=== PATIENT | male | born 1945 | race Caucasian/White ===

== ENCOUNTER 2020-02-29 15:10 | IRF | payer MEDICARE, OTHER, SELFPAY ==
--- NOTE | ~2020-02-29 | XR_ITS ---
XR foot LT min 3V 03/02/2020 13:31 INDICATION: Dorsal metatarsal pain PROCEDURE: 4 views left foot COMPARISON: No prior studies for comparison. FINDINGS: Fracture, dislocation or subluxation is not identified. There are arterial calcifications. Mild osteoarthritis of the first MTP joint. The soft tissues appear within normal limits. No foreign bodies are identified. IMPRESSION: 1: NO ACUTE BONE OR JOINT ABNORMALITY IDENTIFIED. Reviewed, dictated and finalized at location A.
--- NOTE | ~2020-02-29 | XR_ITS ---
XR lumbar spine 2-3V DATE: 03/03/2020 18:38 INDICATION: Low back pain. No injury. TECHNIQUE: AP, lateral, coned lateral lumbosacral views COMPARISON: 01/05/2011 MR lumbar spine FINDINGS: There is grade 1 anterolisthesis at L3-4 and L4-5. There is moderately severe degenerative disc disease at L3-4, L4-5 and to a greater extent L5-S1. Diffuse osteopenia. There is degenerative spurring of the lower thoracic spine. No fracture or bone destruction of the lumbar spine is evident. The lumbar pedicles are intact. The sacroiliac joints are intact. Distal abdominal aortic and bilateral iliac stent. IMPRESSION: Grade 1 anterolisthesis at L3-4 and L4-5 Moderately severe degenerative disc disease at L3-4, L4-5 and L5-S1 Osteopenia Abdominal aortic/biiliac endovascular stent Reviewed, dictated and finalized at location A.
--- NOTE | ~2020-02-29 | XR_ITS ---
XR cervical spine 4-5V 03/02/2020 13:31 Indication: Generalized neck pain Procedure: 4 views of the cervical spine Comparison: No prior studies for comparison. Findings: Straightening of cervical lordosis. There are prominent marginal osteophytes at all cervica l levels. There is moderate multilevel facet and uncinate hypertrophy. Lung apices are normal. Odonto id process within normal limits. No prevertebral soft tissue abnormality. No acute fracture or trauma tic malalignment. Impression: 1: Moderate-severe cervical spondylosis. Reviewed, dictated and finalized at location A. Impression: 1: Moderate-severe cervical spondylosis.
--- NOTE | 2020-02-29 15:42 | PC.NURSE ---
This patient, Baldomero Ascencio, was admitted to [facility] Room 225-01. Patient/family oriented to hospital policies and general routines including ID bracelet, bed and alarms, visiting hours, pain management, procedures, bathroom and other care routines, personal items, smoking policy, room service/diet, and visiting hours. Valuables list has been completed. Information on how to activate the Rapid Response Team has been discussed. Patient/Family are encouraged to report perceived risks to care and to ask questions if they do not understand what they are told or what they should do.
[2020-02-29 15:43] VITALS: BMI 32.0
[2020-02-29 15:44] VITALS: BP 149/68; PULSE 70; RESP 20; TEMP 37; O2SAT 97
[2020-02-29] MEDS: LIPASE/AMYLASE/PROTEASE 12,000 UNITS CAP 2 CAP PO (17:33)
[2020-02-29 20:14] VITALS: BP 148/78; PULSE 68; RESP 20; TEMP 36.9; O2SAT 100
[2020-02-29] MEDS: ATORVASTATIN 40 MG TABLET PO (20:32)
[2020-02-29] MEDS: carvediloL 12.5 MG TABLET PO (20:33)
[2020-02-29] MEDS: DOCUSATE SODIUM 100 MG CAPSULE PO (20:33)
[2020-02-29] MEDS: SENNOSIDES 8.6 MG TABLET PO (20:33)
[2020-03-01 05:18] VITALS: BP 137/62; PULSE 70; RESP 20; TEMP 36.4; O2SAT 97
[2020-03-01 05:23] LABS: Basophils Absolute Auto 0.1 K/mm3 (0.0-0.1); Eosinophils Absolute Auto 0.6 K/mm3 (0-0.3); Eosinophils Percent Auto 8.1 % (0-4.4); Hematocrit 40.3 % (42.0-52.0); Hemoglobin 13.1 g/dL (14.0-18.0); Immature Granulocyte Absolute 0.02 K/mm3 (0.00-0.031); Immature Granulocyte Percent A 0.3 % (0-0.5); Lymphocytes Absolute Auto 1.65 K/mm3 (0.9-3.2); Lymphocytes Percent Auto 23.1 % (18.3-44.2); Mean Corpuscular HGB Conc 32.5 g/dl (32-36); Mean Corpuscular Hemoglobin 26.9 pg (26-34); Mean Corpuscular Volume 82.8 fl (80-100); Mean Platelet Volume 10.1 fl (7.4-10.4); Monocytes Absolute Auto 0.8 K/mm3 (0.1-0.6); Monocytes Percent Auto 11.2 % (2.6-8.5); Neutrophils Percent Auto 56.3 % (45.5-73.1); Platelet Count Result 169 k/mm3 (150-375); Red Blood Count 4.87 M/mm3 (4.6-6.20); Red Cell Distribution Width 15.1 % (11.5-14.5); White Blood Count 7.1 K/mm3 (4.5-10.0)
[2020-03-01 05:32] LABS: Anion Gap 6 mmol/L (8-16); Blood Urea Nitrogen 17 mg/dL (9-20); Calcium 8.8 mg/dL (8.4-10.2); Carbon Dioxide 24 mmol/L (22-30); Chloride 107 mmol/L (98-107); Cholesterol 118 mg/dL (0-200); Estimated CRCL calculation 52 ml/min; Estimated Glomerular Filt Rate 49; Glucose 100 mg/dL (75-110); HDL Direct 36 mg/dL; Potassium 3.9 mmol/L (3.4-5.0); Sodium 137 mmol/L (137-145); Triglycerides 77 mg/dL (<150)
[2020-03-01 05:42] LABS: LDL Cholesterol Direct 64 mg/dL
[2020-03-01 08:35] VITALS: PULSE 76
[2020-03-01] MEDS: CLOPIDOGREL BISULFATE 75 MG TABLET PO (08:35)
[2020-03-01] MEDS: PANTOPRAZOLE 40 MG TABLET PO (08:35)
[2020-03-01] MEDS: TAMSULOSIN HCL 0.4 MG CAPSULE PO (08:35)
[2020-03-01] MEDS: DOCUSATE SODIUM 100 MG CAPSULE PO ×2 (08:35→20:18)
[2020-03-01] MEDS: carvediloL 12.5 MG TABLET PO ×2 (08:35→20:18)
[2020-03-01] MEDS: DUTASTERIDE 0.5 MG CAPSULE PO (08:35)
[2020-03-01] MEDS: ASPIRIN 81 MG ENTERIC TABLET PO (08:35)
[2020-03-01] MEDS: LIPASE/AMYLASE/PROTEASE 12,000 UNITS CAP 2 CAP PO ×3 (08:35→17:13)
[2020-03-01] MEDS: ENOXAPARIN 40 MG/0.4 ML SYRINGE SUB-Q (08:36)
--- NOTE | 2020-03-01 10:54 | WPDREHABHP ---
H&P: HPI History of Present Illness Date/Time: 03/01/20 10:54 Chief complaint: CVA Narrative: Baldomero Ascencio is a 74 year old maleHISTORY OF PRESENT ILLNESS: The patient's primary rehab impairment category is Stroke [] The etiologic diagnosis is right temporal and occipital lobe infarcts [] I saw this patient [id number] on on March 01, 2020 at 10:15 a.m.[] The patient is a 74 years old right-handed male with a past medical history of recurrent strokes, chronic kidney disease stage 3, benign prostatic hypertrophy, obesity and chronic low back pain who presented to [facility] on February 24, 2020 with left arm weakness, dizziness, and left-sided weakness. The patient reports falling out of bed on the morning of presentation. He was transferred to [facility] the same day without notification to a hospitalist or nurse of ,the patient sat in the hallway for [id number] while his room was cleaned. CT scan of the head revealed a recent right temporal and right occipital lobe infarction with chronic appearing lacunar infarct in the left caudate and right cerebellum none. No acute hemorrhage was noted. Neurology was consulted and the patient was continued on aspirin and atorvastatin. EKG revealed a paced rhythm. Echo showed an ejection fraction of 30% with severe left ventricular systolic dysfunction, global hypokinesis, mild aortic stenosis, mild mitral wall regurgitation, mild aortic valve regurgitation, and mild to moderate tricuspid regurgitation. A CT of the lumbar spine was performed to evaluate chronic low back pain and showed multilevel degenerative disc disease. Physical examination continued to reveal left-sided weakness, decreased safety awareness, decreased gross motor control, and impaired balance. He passed the swallowing test and is on a regular consistency diet with thin liquids. Patient was discharged to rehab on Lovenox for DVT prophylaxis. The patient has not traveled outside the [place] or had contact with someone who is ill that his travels outside the [place] in the past 21 days. The patient has not traveled to an area of the [place] there is experiencing known transmission of the Coronavirus and has not had close personal contact with anyone that has. The patient does not have a fever. The patient is not experiencing lower respiratory illness symptoms. Therapy was initiated at the acute care facility and the patient transferred to us from [facility] on February 29, 2020 FALLS OR SURGERIES: The patient has had [no] major surgeries in the 100 days prior to admission. The patient had [no] falls in the past year. the patient has had no falls with injury in the past year . PAST MEDICAL HISTORY: recurrent strokes, chronic kidney disease stage 3, benign prostatic hypertrophy, obesity, and chronic low back pain PAST SURGICAL HISTORY: pacemaker and AAA repair SOCIAL HISTORY: former quit about 20 years ago. Occasional alcohol use. No drug abuse. The patient lives independently in a one-story home with 3 steps to enter. The patient was completely independent prior with no assistive device. Patient's son is able to stay with the patient at discharge from rehab if necessary FAMILY HISTORY: hypertension, coronary artery disease, and stroke PRIOR LEVEL OF FUNCTION: Eating was [INDEPENDENT] Oral Care was [INDEPENDENT] Toileting Hygiene was [INDEPENDENT] Shower/Bathing was [INDEPENDENT] Upper Body Dressing was [INDEPENDENT] Lower Body Dressing was [INDEPENDENT] Donning/[place] Footwear was [INDEPENDENT] Rolling Left and Right was [INDEPENDENT] Sit to Lying was [INDEPENDENT] Lying to Sitting was [INDEPENDENT] Sit to Stand was [INDEPENDENT] Bed to Chair Transfers was [INDEPENDENT] Toilet Transfers was [INDEPENDENT] Walking was [INDEPENDENT] [>500 feet] with [NO DEVICE] Wheelchair Mobility was [NOT APPLICABLE PRIOR TO ADMISSION] Stairs were [IN
[2020-03-01 14:00] VITALS: BP 122/53; PULSE 70; RESP 20; TEMP 36.2; O2SAT 100
--- NOTE | 2020-03-01 14:03 | PCSTNOTE ---
Bedside swallow evaluation This pt was seen for a bedside swallow evaluation (BSE). The pt is edentulous. Following a BSE at another facility, he was placed on a mechanical soft diet with thin liquids. The pt reports that he eats all foods except nuts due to his missing teeth. The pt was given thin and extremely thick liquid, puree, and solid food. All trials were within normal limits, and he exhibited no difficulty with solids despite his missing teeth. It is recommended for the pt to receive a regular, easy to chew diet (7) with thin liquid. Position during intake should be upright. The pt should eat independently. No skilled ST is warranted to address swallowing at this time.
[2020-03-01] MEDS: ATORVASTATIN 40 MG TABLET PO (20:18)
[2020-03-01] MEDS: SENNOSIDES 8.6 MG TABLET PO (20:19)
[2020-03-01 21:42] VITALS: BP 129/64; PULSE 77; RESP 20; TEMP 36.6; O2SAT 96
[2020-03-02 05:37] VITALS: BP 126/75; PULSE 70; RESP 18; TEMP 35.9; O2SAT 100
[2020-03-02] MEDS: DOCUSATE SODIUM 100 MG CAPSULE PO ×2 (08:57→20:17)
[2020-03-02] MEDS: ENOXAPARIN 40 MG/0.4 ML SYRINGE SUB-Q (08:57)
[2020-03-02] MEDS: LIPASE/AMYLASE/PROTEASE 12,000 UNITS CAP 2 CAP PO ×3 (08:57→17:38)
[2020-03-02] MEDS: CLOPIDOGREL BISULFATE 75 MG TABLET PO (08:57)
[2020-03-02] MEDS: DUTASTERIDE 0.5 MG CAPSULE PO (08:57)
[2020-03-02] MEDS: ASPIRIN 81 MG ENTERIC TABLET PO (08:57)
[2020-03-02 08:58] VITALS: PULSE 70
[2020-03-02] MEDS: carvediloL 12.5 MG TABLET PO ×2 (08:58→20:17)
[2020-03-02] MEDS: PANTOPRAZOLE 40 MG TABLET PO (08:58)
[2020-03-02] MEDS: TAMSULOSIN HCL 0.4 MG CAPSULE PO (08:58)
--- NOTE | 2020-03-02 12:50 | WPDNEURORHBP ---
Subjective Date/time seen: 03/02/20 12:50 74 years old right-handed male admitted to the hospital on the rehab floor was the right temporal and occipital lobe infarct in addition to the history of abdominal aortic repair for the aneurysm and a pacemaker, former smoker and drinker Review of Systems Review of Systems: All systems reviewed & are unremarkable except as noted in HPI and below Functional Status Ambulation Ability Ability to Ambulate 10 Feet: Standby Assistance Ability to Ambulate 50 Feet With 2 Turns: Standby Assistance Ability to Ambulate 150 Feet: Standby Assistance Ambulation Assistive Devices: Walker, Wheeled Transfers Ability Ability to Transfer In/Out of Chair: Standby Assistance Exam Narrative: Exam Narrative: examination reveals him to be awake alert cooperative ear nose throat examination normal with no cervical bruit thyromegaly or lymphadenopathy heart regular with no murmur lungs clear to auscultation abdomen is soft with normal bowel sounds his concern about the left foot would be x-rayed today because of the abrasions neurological examination reveals him to have left hemiparesis with hyperreflexia and upgoing plantar response mental status is normal with no evidence of anxiety hallucination or delusion or depression Objective Data Vital Signs Vital Signs: Vital Signs - 24 hr 03/01/20 14:00 03/01/20 21:42 03/02/20 05:37 Temperature 36.2 C L 36.6 C 35.9 C L Pulse Rate 70 77 70 Respiratory Rate 20 20 18 Blood Pressure 122/53 L 129/64 126/75 Pulse Oximetry 100 96 100 03/02/20 08:58 Temperature Pulse Rate 70 Respiratory Rate Blood Pressure Pulse Oximetry Intake/Output Intake/Output: Intake & Output 02/28/20 02/29/20 03/01/20 03/02/20 23:59 23:59 23:59 23:59 Intake Total 240 720 200 Balance 240 720 200 Meds/Results Medications: Active Medications Generic Name Dose Route Start Last Admin Trade Name Freq PRN Reason Stop Dose Admin Lipase/Protease/Amylase 2 cap 02/29/20 17:00 03/02/20 12:10 Afia Gamez 12,000 Units Capsule PO 2 cap TIDWM PRINCE Administration Aspirin 81 mg 03/01/20 09:00 03/02/20 08:57 Aspirin Ec PO 81 mg DAILY PRINCE Administration Atorvastatin Calcium 40 mg 02/29/20 21:00 03/01/20 20:18 Lipitor PO 40 mg HS PRINCE Administration Carvedilol 12.5 mg 02/29/20 21:00 03/02/20 08:58 Coreg PO 12.5 mg Q12HR PRINCE Administration Clopidogrel Bisulfate 75 mg 03/01/20 09:00 03/02/20 08:57 Plavix PO 75 mg DAILY PRINCE Administration Docusate Sodium 100 mg 02/29/20 21:00 03/02/20 08:57 Colace Capsule PO 100 mg Q12HR PRINCE Administration Dutasteride 0.5 mg 03/01/20 09:00 03/02/20 08:57 Avodart PO 0.5 mg DAILY PRINCE Administration Enoxaparin Sodium 40 mg 03/01/20 09:00 03/02/20 08:57 Lovenox SUB-Q 40 mg DAILY PRINCE Administration Oxycodone HCl 5 mg 02/29/20 18:49 03/02/20 09:02 Roxicodone Ir Tablet PO 5 mg Q4-6H PRN Administration Pain Rated 6 or Greater Pantoprazole Sodium 40 mg 03/01/20 09:00 03/02/20 08:58 Protonix PO 03/31/20 09:01 40 mg DAILY PRINCE Administration Senna 8.6 mg 02/29/20 21:00 03/01/20 20:19 Senokot Tablet PO 8.6 mg HS PRINCE Administration Tamsulosin HCl 0.4 mg 03/01/20 09:00 03/02/20 08:58 Flomax PO 0.4 mg DAILY PRINCE Administration Progress Note: A&P Assessment and Plan (1) Mild tricuspid valve regurgitation: Code(s): I07.1 - Rheumatic tricuspid insufficiency Status: Acute (2) Mild aortic valve regurgitation: Code(s): I35.1 - Nonrheumatic aortic (valve) insufficiency Status: Acute (3) Mitral valve regurgitation: Code(s): I34.0 - Nonrheumatic mitral (valve) insufficiency Status: Acute (4) Left ventricular dysfunction: Code(s): I51.9 - Heart disease, unspecified Status: Acute (5) Chronic low back pain: Code(s): M54.5 - Low back pain; G89.29 - Other chronic p
[2020-03-02 14:00] VITALS: BP 127/63; PULSE 70; RESP 20; TEMP 36.4; O2SAT 100
[2020-03-02 20:17] VITALS: PULSE 80
[2020-03-02] MEDS: ATORVASTATIN 40 MG TABLET PO (20:23)
[2020-03-02] MEDS: SENNOSIDES 8.6 MG TABLET PO (20:23)
[2020-03-02 22:00] VITALS: BP 148/74; PULSE 70; RESP 18; TEMP 36.8; O2SAT 99
[2020-03-03 06:00] VITALS: BP 130/56; PULSE 70; RESP 18; TEMP 36.5; O2SAT 100
[2020-03-03 08:36] VITALS: PULSE 70
[2020-03-03] MEDS: LIPASE/AMYLASE/PROTEASE 12,000 UNITS CAP 2 CAP PO ×3 (08:36→17:38)
[2020-03-03] MEDS: carvediloL 12.5 MG TABLET PO ×2 (08:36→20:34)
[2020-03-03] MEDS: ASPIRIN 81 MG ENTERIC TABLET PO (08:36)
[2020-03-03] MEDS: CLOPIDOGREL BISULFATE 75 MG TABLET PO (08:37)
[2020-03-03] MEDS: PANTOPRAZOLE 40 MG TABLET PO (08:37)
[2020-03-03] MEDS: DOCUSATE SODIUM 100 MG CAPSULE PO ×2 (08:37→20:38)
[2020-03-03] MEDS: ENOXAPARIN 40 MG/0.4 ML SYRINGE SUB-Q (08:37)
[2020-03-03] MEDS: DUTASTERIDE 0.5 MG CAPSULE PO (08:37)
[2020-03-03] MEDS: TAMSULOSIN HCL 0.4 MG CAPSULE PO (08:37)
--- NOTE | 2020-03-03 13:27 | RPD ---
INDIVIDUALIZED PLAN OF CARE FOR Baldomero Ascencio Brief Synthesis of Pre-Admission Screen, Post-Admission Evaluation and Therapy Evaluations: The patient presents to rehab with Right temporal and occipital lobe infarcts. Comorbidities include hypertension, chronic low back pain, benign prostatic hypertrophy with obstruction, dyslipidemia, chronic kidney disease, weakness, and vertigo. The patient?s needs will be best met in an intensive program vs. at a lower level of care. The patient requires physician services for neurology services, medical oversight, and coordination of care. Emotional needs will be monitored as depression is a common sequelae of stroke. The patient needs physician monitoring and treatment of anemia, perioperative blood loss, monitoring for adverse reactions to new medications, monitoring of infection, and pain control. The patient requires nursing services for frequent neuro checks, anticoagulation therapy,medication management and education, pressure relief and skin care management, monitoring of labs, bowel and bladder training, diabetes management and education, IV administration, and fall/safety precautions. Deficits include: ADLs, Balance, Endurance, Family Training/Education, Mobility, Pain Management, ROM, Safety, Strength, and Transfers. Metal Wire Coating Operator/Case Management for: Discharge Planning and Patient/Family Counseling Physical Therapy: 5 days per week for 90 minutes. Treatments may include: Therapeutic Exercise, Gait Training, Neuromuscular Re-education, Transfer Training, Community Reintegration, Bed Mobility, Patient/Family Education, Wheelchair Mobility Group Therapy/Concurrent Therapy Rationales: -Improve attention span during functional activities in a distracted environment. -Enhance problem solving and/or adequate judgment skills during functional activities in a distracted environment. -Promote increased safety awareness in a distracted environment to reduce fall risk with functional tasks, transfers, and ambulation to allow a more safe, self-sufficient return to the home environment. -Improve dynamic balance skills to promote safety and independence with functional activities in a distracted environment for maximum gain. Occupational Therapy: 5 days per week for 90 minutes. Treatments may include: Therapeutic Exercise, Therapeutic Activity, Cognitive Training, Self-Care Transfer Training, Community Reintegration, Home Management, Patient/Family Education, Wheelchair Mobility Training, Energy Conservation Training Group Therapy/Concurrent Therapy Rationales: -Allow therapist to observe and teach generalization and carry-over of skills learned in individual therapy. -Enhance problem solving and sequencing skills during therapeutic activities in a distracted environment. -Promote increased safety awareness in a realistic setting to reduce fall risk with functional tasks due to visual and verbal distractions. -Increase functional level with ADLs, ADL transfers and use of adaptive equipment through therapeutic activities with others while promoting safety to allow a more safe, self-sufficient return home. Speech Therapy: 5 days per week for 30 minutes. Treatments may include: Dysphasia Therapy, Speech/Language/Communication Therapy, Cognitive Training, Patient/Family Education Group Therapy/Concurrent Therapy - Rationale: -Allow therapist to observe and teach generalization and carry-over of skills learned in individual therapy. -Improve comprehension skills with complex or abstract ideas through discussion in a realistic setting. -Enhance problem solving skills with complex issues during activities in a distracted environment. -Promote increased memory skills and concentration in a distracted environment for a safe transition home. -Improve attention and focus with language/communication skills in a realistic and supportive therapeutic setting. -Allow for practice of expression of basic needs and ideas through functional a
[2020-03-03 14:00] VITALS: BP 126/58; PULSE 74; RESP 18; TEMP 36.2; O2SAT 98
[2020-03-03 14:12] VITALS: BMI 32.0
--- NOTE | 2020-03-03 14:30 | RPD ---
INDIVIDUALIZED PLAN OF CARE FOR Baldomero Ascencio Brief Synthesis of Pre-Admission Screen, Post-Admission Evaluation and Therapy Evaluations: The patient presents to rehab with Right temporal and occipital lobe infarcts. Comorbidities include hypertension, chronic low back pain, benign prostatic hypertrophy with obstruction, dyslipidemia, chronic kidney disease, weakness, and vertigo. The patient?s needs will be best met in an intensive program vs. at a lower level of care. The patient requires physician services for neurology services, medical oversight, and coordination of care. Emotional needs will be monitored as depression is a common sequelae of stroke. The patient needs physician monitoring and treatment of anemia, perioperative blood loss, monitoring for adverse reactions to new medications, monitoring of infection, pain control. The patient requires nursing services for frequent neuro checks, anticoagulation therapy, medication management and education, pressure relief and skin care management, monitoring of labs, bowel and bladder training, diabetes management and education, IV administration, and fall/safety precautions. Deficits include: ADLs, Balance, Endurance, Family Training/Education, Mobility, Pain Management, ROM, Safety, Strength, and Transfers. Accounting Auditor/Case Management for: Discharge Planning and Patient/Family Counseling Physical Therapy: 5 days per week for 75 minutes. Treatments may include: Therapeutic Exercise, Gait Training, Neuromuscular Re-education, Transfer Training, Community Reintegration, Bed Mobility, Patient/Family Education, Wheelchair Mobility Group Therapy/Concurrent Therapy Rationales: -Improve attention span during functional activities in a distracted environment. -Enhance problem solving and/or adequate judgment skills during functional activities in a distracted environment. -Promote increased safety awareness in a distracted environment to reduce fall risk with functional tasks, transfers, and ambulation to allow a more safe, self-sufficient return to the home environment. -Improve dynamic balance skills to promote safety and independence with functional activities in a distracted environment for maximum gain. Occupational Therapy: 5 days per week for 75 minutes. Treatments may include: Therapeutic Exercise, Therapeutic Activity, Cognitive Training, Self-Care Transfer Training, Community Reintegration, Home Management, Patient/Family Education, Wheelchair Mobility Training, Energy Conservation Training Group Therapy/Concurrent Therapy Rationales: -Allow therapist to observe and teach generalization and carry-over of skills learned in individual therapy. -Enhance problem solving and sequencing skills during therapeutic activities in a distracted environment. -Promote increased safety awareness in a realistic setting to reduce fall risk with functional tasks due to visual and verbal distractions. -Increase functional level with ADLs, ADL transfers and use of adaptive equipment through therapeutic activities with others while promoting safety to allow a more safe, self-sufficient return home. Speech Therapy: 5 days per week for 30 minutes. Treatments may include: Dysphasia Therapy, Speech/Language/Communication Therapy, Cognitive Training, Patient/Family Education Group Therapy/Concurrent Therapy - Rationale: -Allow therapist to observe and teach generalization and carry-over of skills learned in individual therapy. -Improve comprehension skills with complex or abstract ideas through discussion in a realistic setting. -Enhance problem solving skills with complex issues during activities in a distracted environment. -Promote increased memory skills and concentration in a distracted environment for a safe transition home. -Improve attention and focus with language/communication skills in a realistic and supportive therapeutic setting. -Allow for practice of expression of basic needs and ideas through functional acti
[2020-03-03] MEDS: ATORVASTATIN 40 MG TABLET PO (20:33)
[2020-03-03 20:34] VITALS: PULSE 74
[2020-03-03] MEDS: SENNOSIDES 8.6 MG TABLET PO (20:40)
[2020-03-03 22:00] VITALS: BP 138/62; PULSE 76; RESP 18; TEMP 36.3; O2SAT 98
[2020-03-04 06:00] VITALS: BP 135/67; PULSE 70; RESP 20; TEMP 36.6; O2SAT 100
[2020-03-04 08:30] VITALS: PULSE 64
[2020-03-04] MEDS: carvediloL 12.5 MG TABLET PO ×2 (08:30→20:28)
[2020-03-04] MEDS: ASPIRIN 81 MG ENTERIC TABLET PO (08:30)
[2020-03-04] MEDS: CLOPIDOGREL BISULFATE 75 MG TABLET PO (08:30)
[2020-03-04] MEDS: TAMSULOSIN HCL 0.4 MG CAPSULE PO (08:32)
[2020-03-04] MEDS: PANTOPRAZOLE 40 MG TABLET PO (08:32)
[2020-03-04] MEDS: DUTASTERIDE 0.5 MG CAPSULE PO (08:32)
[2020-03-04] MEDS: ENOXAPARIN 40 MG/0.4 ML SYRINGE SUB-Q (08:32)
[2020-03-04] MEDS: DOCUSATE SODIUM 100 MG CAPSULE PO ×2 (08:38→20:28)
[2020-03-04 14:00] VITALS: BP 107/63; PULSE 76; RESP 20; TEMP 36.6; O2SAT 98
--- NOTE | 2020-03-04 14:42 | WPDNEURORHBP ---
Subjective Date/time seen: 03/04/20 14:43 Interval history: this 74-year-old gentleman is here after having had right temporal and occipital lobe infarcts with significant visual field defect receiving PT OT gait training is able to walk 300 feet and we will discontinue the Lovenox his visual field defect is the most bothersome thing in the things complaining of constipation and would give him milk of magnesia The patient is doing fairly well and denies any headache nausea vomiting chest pain shortness of breath fever chills sore throat Review of Systems Review of Systems: All systems reviewed & are unremarkable except as noted in HPI and below Functional Status Ambulation Ability Ability to Ambulate 10 Feet: Standby Assistance Ability to Ambulate 50 Feet With 2 Turns: Standby Assistance Ability to Ambulate 150 Feet: Contact Guard Ambulation Assistive Devices: Walker, Wheeled Transfers Ability Ability to Transfer In/Out of Chair: Standby Assistance Exam Const: General: comfortable and no acute distress HENMT: General nose exam: Normal nares present Mouth: Yes moist mucous membranes Eyes: General: appearance normal, both eyes and all related structures Other: significant left-sided visual field defect hampering the activities of daily Neck: Neck: supple and no JVD Resp: Effort & Inspection: normal respiratory effort Auscultation: clear to auscultation bilaterally Cardio: Rate: regular rate Rhythm: regular rhythm GI: GI Palp: Yes Soft to palpation Auscultation: normal bowel sounds Skin: General skin exam: normal color and no rashes or lesions noted Neuro: Other: patient is awake and alert will oriented needing assistance all the activities of daily living at this time however made excellent progress visual field defect is the most important defect hampering his activities Extrem: General: normal to inspection Psych: Mental Status: mental status grossly normal Objective Data Vital Signs Vital Signs: Vital Signs - 24 hr 03/03/20 20:34 03/03/20 22:00 03/04/20 06:00 Temperature 36.3 C L 36.6 C Pulse Rate 74 76 70 Respiratory Rate 18 20 Blood Pressure 138/62 135/67 Pulse Oximetry 98 100 03/04/20 08:30 Temperature Pulse Rate 64 Respiratory Rate Blood Pressure Pulse Oximetry Intake/Output Intake/Output: Intake & Output 03/01/20 03/02/20 03/03/20 03/04/20 23:59 23:59 23:59 23:59 Intake Total 720 640 720 Balance 720 640 720 Meds/Results Medications: Active Medications Generic Name Dose Route Start Last Admin Trade Name Freq PRN Reason Stop Dose Admin Lipase/Protease/Amylase 2 cap 02/29/20 17:00 03/04/20 12:44 Afia Gamez 12,000 Units Capsule PO Not Given TIDWM PRINCE Aspirin 81 mg 03/01/20 09:00 03/04/20 08:30 Aspirin Ec PO 81 mg DAILY PRINCE Administration Atorvastatin Calcium 40 mg 02/29/20 21:00 03/03/20 20:33 Lipitor PO 40 mg HS PRINCE Administration Carvedilol 12.5 mg 02/29/20 21:00 03/04/20 08:30 Coreg PO 12.5 mg Q12HR PRINCE Administration Clopidogrel Bisulfate 75 mg 03/01/20 09:00 03/04/20 08:30 Plavix PO 75 mg DAILY PRINCE Administration Docusate Sodium 100 mg 02/29/20 21:00 03/04/20 08:38 Colace Capsule PO 100 mg Q12HR PRINCE Administration Dutasteride 0.5 mg 03/01/20 09:00 03/04/20 08:32 Avodart PO 0.5 mg DAILY [facility] Administration Magnesium Hydroxide 30 ml 03/04/20 13:00 Milk Of Magnesia PO QAM PRN Constipation Oxycodone HCl 5 mg 02/29/20 18:49 03/04/20 13:38 Roxicodone Ir Tablet PO 5 mg Q4-6H PRN Administration Pain Rated 6 or Greater Pantoprazole Sodium 40 mg 03/01/20 09:00 03/04/20 08:32 Protonix PO 03/31/20 09:01 40 mg DAILY PRINCE Administration Senna 8.6 mg 02/29/20 21:00 03/03/20 20:40 Senokot Tablet PO 8.6 mg HS PRINCE Administration Tamsulosin HCl 0.4 mg 03/01/20 09:00 03/04/20 08:32 Flomax PO 0.4 mg DAILY PRINCE Administration
[2020-03-04] MEDS: LIPASE/AMYLASE/PROTEASE 12,000 UNITS CAP 2 CAP PO (16:28)
[2020-03-04 20:28] VITALS: PULSE 76
[2020-03-04] MEDS: ATORVASTATIN 40 MG TABLET PO (20:28)
[2020-03-04] MEDS: SENNOSIDES 8.6 MG TABLET PO (20:28)
[2020-03-04] MEDS: MAGNESIUM HYDROXIDE SUSP 30 ML UDC PO (20:34)
[2020-03-04 22:00] VITALS: BP 144/75; PULSE 64; RESP 20; TEMP 36.8; O2SAT 100
[2020-03-05 06:00] VITALS: BP 157/67; PULSE 71; RESP 20; TEMP 36.8; O2SAT 99
[2020-03-05 09:08] VITALS: PULSE 88
[2020-03-05] MEDS: LIPASE/AMYLASE/PROTEASE 12,000 UNITS CAP 2 CAP PO ×3 (09:08→17:39)
[2020-03-05] MEDS: ASPIRIN 81 MG ENTERIC TABLET PO (09:08)
[2020-03-05] MEDS: carvediloL 12.5 MG TABLET PO ×2 (09:08→20:40)
[2020-03-05] MEDS: PANTOPRAZOLE 40 MG TABLET PO (09:09)
[2020-03-05] MEDS: TAMSULOSIN HCL 0.4 MG CAPSULE PO (09:09)
[2020-03-05] MEDS: CLOPIDOGREL BISULFATE 75 MG TABLET PO (09:09)
[2020-03-05] MEDS: DUTASTERIDE 0.5 MG CAPSULE PO (09:09)
[2020-03-05] MEDS: DOCUSATE SODIUM 100 MG CAPSULE PO ×2 (09:17→20:40)
[2020-03-05 14:00] VITALS: BP 118/58; PULSE 69; RESP 20; TEMP 36.7; O2SAT 96
--- NOTE | 2020-03-05 15:06 | WPDNEURORHBP ---
Subjective Date/time seen: 03/05/20 15:06 Interval history: this 74-year-old gentleman is here after having had the right temporoparietal stroke with visual field defect from which she is improving overall he denies any headache nausea vomiting chest pain shortness of breath fever chills sore throat Review of Systems Review of Systems: All systems reviewed & are unremarkable except as noted in HPI and below Functional Status Ambulation Ability Ability to Ambulate 10 Feet: Standby Assistance Ability to Ambulate 50 Feet With 2 Turns: Standby Assistance Ability to Ambulate 150 Feet: Standby Assistance Ambulation Assistive Devices: Walker, Wheeled Transfers Ability Ability to Transfer In/Out of Chair: Standby Assistance Exam Const: General: comfortable and no acute distress HENMT: General nose exam: Normal nares present Mouth: Yes moist mucous membranes Eyes: General: appearance normal, both eyes and all related structures Neck: Neck: supple and no JVD Resp: Effort & Inspection: normal respiratory effort Auscultation: clear to auscultation bilaterally Cardio: Rate: regular rate Rhythm: regular rhythm GI: GI Palp: Yes Soft to palpation Auscultation: normal bowel sounds Skin: General skin exam: normal color and no rashes or lesions noted Neuro: Other: patient is awake and alert well oriented with left-sided visual field defect and discoordination and that is the main issue he is doing well otherwise and has excellent progress Extrem: General: normal to inspection Psych: Mental Status: mental status grossly normal Objective Data Vital Signs Vital Signs: Vital Signs - 24 hr 03/04/20 20:28 03/04/20 22:00 03/05/20 06:00 Temperature 36.8 C 36.8 C Pulse Rate 76 64 71 Respiratory Rate 20 20 Blood Pressure 144/75 H 157/67 H Pulse Oximetry 100 99 03/05/20 09:08 Temperature Pulse Rate 88 Respiratory Rate Blood Pressure Pulse Oximetry Intake/Output Intake/Output: Intake & Output 03/02/20 03/03/20 03/04/20 03/05/20 23:59 23:59 23:59 23:59 Intake Total 640 720 480 480 Balance 640 720 480 480 Meds/Results Medications: Active Medications Generic Name Dose Route Start Last Admin Trade Name Freq PRN Reason Stop Dose Admin Hydrocodone Bitart/Acetaminophen 1 tab 03/04/20 15:28 03/05/20 09:17 [place] 7.5-325 Mg PO 1 tab Q4-6H PRN Administration Pain Rated 7-10 Lipase/Protease/Amylase 2 cap 02/29/20 17:00 03/05/20 12:[address] 12,000 Units Capsule PO 2 cap TIDWM PRINCE Administration Aspirin 81 mg 03/01/20 09:00 03/05/20 09:08 Aspirin Ec PO 81 mg DAILY PRINCE Administration Atorvastatin Calcium 40 mg 02/29/20 21:00 03/04/20 20:28 Lipitor PO 40 mg HS PRINCE Administration Carvedilol 12.5 mg 02/29/20 21:00 03/05/20 09:08 Coreg PO 12.5 mg Q12HR PRINCE Administration Clopidogrel Bisulfate 75 mg 03/01/20 09:00 03/05/20 09:09 Plavix PO 75 mg DAILY PRINCE Administration Docusate Sodium 100 mg 02/29/20 21:00 03/05/20 09:17 Colace Capsule PO 100 mg Q12HR PRINCE Administration Dutasteride 0.5 mg 03/01/20 09:00 03/05/20 09:09 Avodart PO 0.5 mg DAILY PRINCE Administration Magnesium Hydroxide 30 ml 03/04/20 13:00 03/04/20 20:34 Milk Of Magnesia PO 30 ml QAM PRN Administration Constipation Pantoprazole Sodium 40 mg 03/01/20 09:00 03/05/20 09:09 Protonix PO 03/31/20 09:01 40 mg DAILY PRINCE Administration Senna 8.6 mg 02/29/20 21:00 03/04/20 20:28 Senokot Tablet PO 8.6 mg HS PRINCE Administration Tamsulosin HCl 0.4 mg 03/01/20 09:00 03/05/20 09:09 Flomax PO 0.4 mg DAILY PRINCE Administration Radiology Results: ITS Impressions Cervical Spine X-Ray 03/02/20 15:12 Impression: 1: Moderate-severe cervical spondylosis. Foot X-Ray 03/02/20 15:14 IMPRESSION: 1: NO ACUTE BONE OR JOINT ABNORMALITY IDENTIFIED. Lumbar Spine X-Ray 03/03/20 19:32 IMPRESSION: Nina
[2020-03-05] MEDS: ATORVASTATIN 40 MG TABLET PO (20:39)
[2020-03-05 20:40] VITALS: PULSE 69
[2020-03-05] MEDS: SENNOSIDES 8.6 MG TABLET PO (20:40)
[2020-03-05 22:00] VITALS: BP 140/77; PULSE 80; RESP 18; TEMP 36.8; O2SAT 98
[2020-03-06 06:00] VITALS: BP 114/64; PULSE 67; RESP 20; TEMP 36.2; O2SAT 91
[2020-03-06 08:40] VITALS: PULSE 67
[2020-03-06] MEDS: LIPASE/AMYLASE/PROTEASE 12,000 UNITS CAP 2 CAP PO ×3 (08:40→17:56)
[2020-03-06] MEDS: DUTASTERIDE 0.5 MG CAPSULE PO (08:40)
[2020-03-06] MEDS: PANTOPRAZOLE 40 MG TABLET PO (08:40)
[2020-03-06] MEDS: CLOPIDOGREL BISULFATE 75 MG TABLET PO (08:40)
[2020-03-06] MEDS: ASPIRIN 81 MG ENTERIC TABLET PO (08:40)
[2020-03-06] MEDS: carvediloL 12.5 MG TABLET PO ×2 (08:40→20:47)
[2020-03-06] MEDS: TAMSULOSIN HCL 0.4 MG CAPSULE PO (08:41)
[2020-03-06] MEDS: DOCUSATE SODIUM 100 MG CAPSULE PO ×2 (08:42→20:47)
[2020-03-06 14:00] VITALS: BP 142/68; PULSE 84; RESP 20; TEMP 36.5; O2SAT 99
[2020-03-06 20:06] VITALS: BP 133/62; PULSE 70; RESP 18; TEMP 36.8; O2SAT 100
[2020-03-06] MEDS: ATORVASTATIN 40 MG TABLET PO (20:47)
[2020-03-06] MEDS: SENNOSIDES 8.6 MG TABLET PO (20:47)
[2020-03-07 05:07] VITALS: BP 114/70; PULSE 75; RESP 18; TEMP 36.4; O2SAT 96
[2020-03-07 10:07] VITALS: PULSE 75
[2020-03-07] MEDS: carvediloL 12.5 MG TABLET PO ×2 (10:07→20:27)
[2020-03-07] MEDS: LIPASE/AMYLASE/PROTEASE 12,000 UNITS CAP 2 CAP PO ×3 (10:07→18:11)
[2020-03-07] MEDS: ASPIRIN 81 MG ENTERIC TABLET PO (10:07)
[2020-03-07] MEDS: TAMSULOSIN HCL 0.4 MG CAPSULE PO (10:08)
[2020-03-07] MEDS: DUTASTERIDE 0.5 MG CAPSULE PO (10:08)
[2020-03-07] MEDS: PANTOPRAZOLE 40 MG TABLET PO (10:08)
[2020-03-07] MEDS: CLOPIDOGREL BISULFATE 75 MG TABLET PO (10:08)
[2020-03-07] MEDS: DOCUSATE SODIUM 100 MG CAPSULE PO ×2 (10:10→20:28)
--- NOTE | 2020-03-07 13:13 | PCNFU ---
Nutrition Follow-Up Complete: No nutrition diagnosis at this time. Goal: Patient to consume 75% of meals or greater. Pt is meeting goal with 86% or more meal consumption. Pt reports good appetite with no nausea, vomiting, constipation, or diarrhea. Will continue with current goal. Pt current nutrition is 4 gm sodium, low cholesterol. Nutrition recommendation: Recommend heart healthy diet, pt is unfavorable of diet at this time, recommend regular diet for short period of time while patient is recovering to provide pt with more strength Last recorded weight is 107.2 kg. Recommend obtaining new weight. Bowel Motility: last bowel movement reported on 03/04/20 Labs Reviewed: No new labs. Recommend obtaining new labs Meds Noted: Coreg, Plavix, Flomax, [place], Lipitor, Roxicodone, Protonix, Colace, Creon Additional Notes: Left toe scab. MNT stroke education provided, pt states he will not follow. See MNT stroke note for more information. Follow up every 7 days.
[2020-03-07 14:00] VITALS: BP 123/66; PULSE 67; RESP 20; TEMP 36.4; O2SAT 99
--- NOTE | 2020-03-07 14:30 | WPDNEURORHBP ---
Subjective Date/time seen: 03/07/20 14:30 Interval history: this 74-year-old gentleman is here status post right hemispheric stroke and the left-sided hemiparesis he has done remarkably well and he is able to walk 165 feet course with the assistance he denies any headache nausea vomiting chest pain or shortness of breath he has chronic low back pain for which he is asking for limited supply of the medication we have been giving and I have encouraged him to make a follow-up appointment with the primary care physician followed by his filter tender and also follow-up physician /neurologist at the [facility] where he was treated last Review of Systems Review of Systems: All systems reviewed & are unremarkable except as noted in HPI and below Functional Status Ambulation Ability Ability to Ambulate 10 Feet: Independent Ability to Ambulate 50 Feet With 2 Turns: Independent Ability to Ambulate 150 Feet: Independent Ambulation Assistive Devices: Walker, Wheeled Transfers Ability Ability to Transfer In/Out of Chair: Independent Exam Const: General: comfortable and no acute distress HENMT: General nose exam: Normal nares present Mouth: Yes moist mucous membranes Eyes: General: appearance normal, both eyes and all related structures Neck: Neck: supple and no JVD Resp: Effort & Inspection: normal respiratory effort Auscultation: clear to auscultation bilaterally Cardio: Other: paced rhythm GI: GI Palp: Yes Soft to palpation Auscultation: normal bowel sounds Skin: General skin exam: normal color and no rashes or lesions noted Neuro: Other: patient is awake alert well oriented time place and person has normal speech and language function and improving left-sided hemiparesis Extrem: General: normal to inspection Psych: Mental Status: mental status grossly normal Objective Data Vital Signs Vital Signs: Vital Signs - 24 hr 03/06/20 20:06 03/07/20 05:07 03/07/20 10:07 Temperature 36.8 C 36.4 C Pulse Rate 70 75 75 Respiratory Rate 18 18 Blood Pressure 133/62 114/70 Pulse Oximetry 100 96 Intake/Output Intake/Output: Intake & Output 03/04/20 03/05/20 03/06/20 03/07/20 23:59 23:59 23:59 23:59 Intake Total 480 720 480 720 Balance 480 720 480 720 Meds/Results Medications: Active Medications Generic Name Dose Route Start Last Admin Trade Name Freq PRN Reason Stop Dose Admin Hydrocodone Bitart/Acetaminophen 1 tab 03/04/20 15:28 03/07/20 10:06 [place] 7.5-325 Mg PO 1 tab Q4-6H PRN Administration Pain Rated 7-10 Lipase/Protease/Amylase 2 cap 02/29/20 17:00 03/07/20 13:[address] 12,000 Units Capsule PO 2 cap TIDWM PRINCE Administration Aspirin 81 mg 03/01/20 09:00 03/07/20 10:07 Aspirin Ec PO 81 mg DAILY PRINCE Administration Atorvastatin Calcium 40 mg 02/29/20 21:00 03/06/20 20:47 Lipitor PO 40 mg HS PRINCE Administration Carvedilol 12.5 mg 02/29/20 21:00 03/07/20 10:07 Coreg PO 12.5 mg Q12HR PRINCE Administration Clopidogrel Bisulfate 75 mg 03/01/20 09:00 03/07/20 10:08 Plavix PO 75 mg DAILY PRINCE Administration Docusate Sodium 100 mg 02/29/20 21:00 03/07/20 10:10 Colace Capsule PO 100 mg Q12HR PRINCE Administration Dutasteride 0.5 mg 03/01/20 09:00 03/07/20 10:08 Avodart PO 0.5 mg DAILY PRINCE Administration Magnesium Hydroxide 30 ml 03/04/20 13:00 03/04/20 20:34 Milk Of Magnesia PO 30 ml QAM PRN Administration Constipation Pantoprazole Sodium 40 mg 03/01/20 09:00 03/07/20 10:08 Protonix PO 03/31/20 09:01 40 mg DAILY PRINCE Administration Senna 8.6 mg 02/29/20 21:00 03/06/20 20:47 Senokot Tablet PO 8.6 mg HS PRINCE Administration Tamsulosin HCl 0.4 mg 03/01/20 09:00 03/07/20 10:08 Flomax PO 0.4 mg DAILY PRINCE Administration Radiology Results: ITS Impressions Cervical Spine X-Ray 03/02/20 15:12 Impression: 1: Moderate-severe cervical spondylosis.
--- NOTE | 2020-03-07 14:38 | PCNSR ---
On 03/07/20, the student, Liam Carreon, provided care and completed [facility] documentation on this patient. I have reviewed the student's documentation and agree with the findings.
[2020-03-07] MEDS: SENNOSIDES 8.6 MG TABLET PO (20:22)
[2020-03-07 20:27] VITALS: PULSE 70
[2020-03-07] MEDS: ATORVASTATIN 40 MG TABLET PO (20:27)
[2020-03-07 22:00] VITALS: BP 126/63; PULSE 86; RESP 18; TEMP 36.6; O2SAT 99
[2020-03-08 05:00] LABS: Basophils Absolute Auto 0.1 K/mm3 (0.0-0.1); Basophils Percent Auto 1.8 % (0.2-1.2); Eosinophils Absolute Auto 0.5 K/mm3 (0-0.3); Eosinophils Percent Auto 8.8 % (0-4.4); Hematocrit 40.4 % (42.0-52.0); Hemoglobin 12.8 g/dL (14.0-18.0); Immature Granulocyte Absolute 0.01 K/mm3 (0.00-0.031); Immature Granulocyte Percent A 0.2 % (0-0.5); Lymphocytes Absolute Auto 1.82 K/mm3 (0.9-3.2); Lymphocytes Percent Auto 29.7 % (18.3-44.2); Mean Corpuscular HGB Conc 31.7 g/dl (32-36); Mean Corpuscular Hemoglobin 26.6 pg (26-34); Mean Corpuscular Volume 83.8 fl (80-100); Mean Platelet Volume 10.8 fl (7.4-10.4); Monocytes Absolute Auto 0.8 K/mm3 (0.1-0.6); Monocytes Percent Auto 13.2 % (2.6-8.5); Neutrophils Absolute Auto 2.8 K/mm3 (1.3-6.7); Neutrophils Percent Auto 46.3 % (45.5-73.1); Platelet Count Result 179 k/mm3 (150-375); Red Blood Count 4.82 M/mm3 (4.6-6.20); White Blood Count 6.1 K/mm3 (4.5-10.0)
[2020-03-08 05:22] LABS: Anion Gap 9 mmol/L (8-16); Blood Urea Nitrogen 24 mg/dL (9-20); Calcium 8.8 mg/dL (8.4-10.2); Carbon Dioxide 23 mmol/L (22-30); Chloride 103 mmol/L (98-107); Estimated CRCL calculation 49 ml/min; Estimated Glomerular Filt Rate 46; Glucose 93 mg/dL (75-110); Sodium 135 mmol/L (137-145)
[2020-03-08 06:00] VITALS: BP 128/50; PULSE 71; RESP 20; TEMP 36.3; O2SAT 100
[2020-03-08 09:03] VITALS: PULSE 78
[2020-03-08] MEDS: DUTASTERIDE 0.5 MG CAPSULE PO (09:03)
[2020-03-08] MEDS: CLOPIDOGREL BISULFATE 75 MG TABLET PO (09:03)
[2020-03-08] MEDS: TAMSULOSIN HCL 0.4 MG CAPSULE PO (09:03)
[2020-03-08] MEDS: carvediloL 12.5 MG TABLET PO (09:03)
[2020-03-08] MEDS: LIPASE/AMYLASE/PROTEASE 12,000 UNITS CAP 2 CAP PO (09:03)
[2020-03-08] MEDS: PANTOPRAZOLE 40 MG TABLET PO (09:03)
[2020-03-08] MEDS: ASPIRIN 81 MG ENTERIC TABLET PO (09:04)
[2020-03-08] MEDS: DOCUSATE SODIUM 100 MG CAPSULE PO (09:04)
--- NOTE | 2020-03-08 12:44 | PC.NURSE ---
1219 patient was discharged all instructions understood, when KNEE BOLTER took patient down to car, he told his son he wanted to drive although very specifically he was told not to drive until cleared by neurologist from [facility]
--- NOTE | 2020-03-12 15:00 | PM.DS ---
DS: Admitting Diagnosis Admitting Diagnosis Admitting Diagnosis: CVA DS: Discharge Diagnosis Discharge Diagnosis (1) Acute occipital temporal infarction: Code(s): I63.9 - Cerebral infarction, unspecified Status: Acute (2) Right temporal lobe infarction: Code(s): I63.89 - Other cerebral infarction Status: Acute (3) Mild tricuspid valve regurgitation: Code(s): I07.1 - Rheumatic tricuspid insufficiency Status: Acute (4) Mild aortic valve regurgitation: Code(s): I35.1 - Nonrheumatic aortic (valve) insufficiency Status: Acute (5) Mitral valve regurgitation: Code(s): I34.0 - Nonrheumatic mitral (valve) insufficiency Status: Acute (6) Left ventricular dysfunction: Code(s): I51.9 - Heart disease, unspecified Status: Acute (7) Chronic low back pain: Code(s): M54.5 - Low back pain; G89.29 - Other chronic pain Status: Acute (8) Obesity: Code(s): E66.9 - Obesity, unspecified Status: Acute (9) Benign prostatic hyperplasia: Code(s): N40.0 - Benign prostatic hyperplasia without lower urinary tract symptoms Status: Acute (10) Chronic kidney disease, stage III (moderate): Code(s): N18.3 - Chronic kidney disease, stage 3 (moderate) Status: Acute DS: Summary Hospital Course Reason for hospitalization: the patient was primarily admitted to the rehab after having had the stroke of multiple sites as mentioned in my history he significantly improved overall after seeing the PT OT and speech and was able to be discharged home with home health to follow he was able to achieve the following independent measures Hospital Course: eating independent, oral hygiene setup, toileting independent, bathing supervision, upper body dressing independent, lower body dressing supervision, footwear independent, rolling in bed independent, sitting to lying independent, lying to sitting independent, sit to stand independent, chair transfers independent, toilet transfers independent, car transfers independent, walking 10 feet independent, walking 50 feet feet 2 turns independent, walking 150 feet supervision initially now independent, walking 10 feet uneven surfaces independent, copper step independent 4 steps independent 12 steps independent picking of object independent wheelchair not applicable patient did remar kably well getting rehab no unusual events were recorded Time Spent with Patient Time attestation: Total time spent providing and/or coordinating discharge services: Exam Const: General: comfortable and no acute distress HENMT: General nose exam: Normal nares present Mouth: Yes dry mucous membranes Eyes: General: appearance normal, both eyes and all related structures Neck: Neck: supple and no JVD Resp: Effort & Inspection: normal respiratory effort Auscultation: clear to auscultation bilaterally Cardio: Rate: regular rate Rhythm: regular rhythm GI: GI Palp: Yes Soft to palpation Auscultation: normal bowel sounds Skin: General skin exam: normal color and no rashes or lesions noted Neuro: Other: patient is awake alert well oriented with significantly improved neurological dysfunction which have been documented in the previous notes the visual field defect also improved Extrem: General: normal to inspection Psych: Mental Status: mental status grossly normal Discharge Plan Discharge Attending physician on discharge: Donovan Pantoja Discharging Clinician: Donovan Pantoja Anticipated Discharge Date/Time: 03/08/20 14:38 Patient Disposition: Home Health Service Activity: may shower and no driving Diet: as tolerated Discharge Instructions: Per Care Coordination: Home Health services have been arranged through [facility]. [facility] can be contacted at [phone]. Please fax discharge instructions to [facility]
== END 2020-03-08 12:15 | disposition home health service (06) | DRG 57 ==
PROVIDERS: Admitting Provider Psychiatry & Neurology Neurology; Visit Provider Psychiatry & Neurology Neurology
DX: I69.354 Hemiplegia and hemiparesis following cerebral infarction affecting left non-dominant side (principal); I69.398 Other sequelae of cerebral infarction; H53.8 Other visual disturbances; E78.5 Hyperlipidemia, unspecified; E66.9 Obesity, unspecified; G89.29 Other chronic pain; I08.3 Combined rheumatic disorders of mitral, aortic and tricuspid valves; I12.9 Hypertensive chronic kidney disease with stage 1 through stage 4 chronic kidney disease, or unspecified chronic kidney disease; M47.812 Spondylosis without myelopathy or radiculopathy, cervical region; M51.36 Other intervertebral disc degeneration, lumbar region; N18.3 Chronic kidney disease, stage 3 (moderate); N40.0 Benign prostatic hyperplasia without lower urinary tract symptoms; Z68.32 Body mass index [BMI] 32.0-32.9, adult; Z87.891 Personal history of nicotine dependence; Z95.0 Presence of cardiac pacemaker
CPT/HCPCS: 36415; 72050; 72100; 73630; 80048; 80061; 85025; 92507; 92523; 92610; 97110; 97116; 97161; 97165; 97530; 97535; A9270; J1650